=== PATIENT | male | born 1955 | race Caucasian/White ===

== ENCOUNTER 2024-09-28 09:47 | Inpatient (IN) | payer OTHER ==
[~2024-09-28] VITALS: Ht 188 cm; Wt 177.0 kg
[2024-09-28] VITALS (24 sets, daily range): BP systolic 100–138; BP diastolic 51–96; PULSE 64–140; RESP 9–19; TEMP 98–98.7; O2SAT 88–100
--- NOTE | 2024-09-28 09:59 | DVHINCON2 ---
Date Seen: Sep 28, 2024 Referring Physician MD Sharon Reason for Consultation STEMI History of Present Illness This is a 69-year-old man who presented to the emergency room via EMS with a chief complaint of chest pain. Describes the chest pain as substernal, radiating to his left arm, non provoked, and rated as 8/10. He self administered NTG SL 0.4 mg x 2 with mild relief of symptoms prior to EMS arrival. He was found pale, cool, and diaphoretic undergoing a BGL check in the 180s ng/dL. ASA 325 mg was administered en route to the hospital. Upon arrival to the emergency room he underwent a 12 lead electrocardiogram revealing an inferior wall ST-elevation myocardial infarction with reciprocal changes to anteroseptal and lateral leads for which a Code STEMI was activated. During assessment, the patient transitioned from a sinus rhythm to atrial fibrillation with an associated SBP in the 90s mmHg. Significant medical history includes coronary artery disease status post PTCA including one CHELSEA to the RCA with ASA therapy at [facility] in 2020, unspecified skin CA with current left facial lesion and previous lesion removal from right shoulder area and left AC two weeks ago, hypertension, dyslipidemia, insulin-dependent diabetes mellitus, COPD with O2 dependence, remote history of tobacco use including 44 pack-years, and morbid obesity. Past Medical History Past medical history reviewed. No other significant than mentioned above. Past Surgical History PTCA to the RCA x 1 CHELSEA, 2020 Right shoulder lesion removal Left AC lesion removal, two weeks ago Right ankle Back Neck Family History Family history reviewed. Social History Denies the use of illicit drugs, alcohol, or tobacco use. Allergies: Coded Allergies: NO KNOWN ALLERGIES (Unverified , 06/26/14) Home Meds Home medications reviewed. Current Medications Current Medications Medications (Trade) Dose Ordered Sig/Arnol Route PRN Reason Start Time Stop Time Status Last Admin Sodium Chloride (Saline Lock Ns) 10 ml Q8HR IV 09/28/24 14:00 UNV Aspirin 81 mg DAILY PO 09/29/24 10:00 UNV Review of Systems Constitutional: No symptom reported Ears, Nose, & Throat: No symptom reported Eyes: No symptom reported Neurological: No symptoms reported Pulmonary/Respiratory: No symptom reported Cardiovascular: Chest pain Gastrointestinal: No symptom reported Genitourinary: No symptom reported Musculoskeletal: No symptom reported Skin: No symptom reported Psychiatric: No symptom reported Endocrine: No symptom reported Hemotologic/Lymphatic: No symptom reported Physical Exam General Appearance: Cool, pale, diaphoretic. Morbidly obese. Severe acute distress Head Exam: Normal inspection Neck Exam: Normal inspection. Non-tender. Normal alignment Pulmonary/Respiratory: Chest non-tender. Diminished bilateral breath sounds Cardiovascular/Chest: Regular rate and rhythm. S1, S2. Inferior wall STEMI. No murmurs. No JVD. Peripheral Pulses: 2+ Radial (R). 2+ Radial (L). 2+ Pedal (R). 2+ Pedal (L) Abdominal Exam: Normal bowel sounds. Soft. Ankle Exam: Negative ankle edema Lower extremities: Negative lower extremity edema Neuro/Mental Status: A&O x4. Coherent Thoughts/Psych: Normal thought pattern. Appropriate mood and affect. Good judgement and insight Appearance: Severe acute distress Skin Exam: Hyperpigmentation to bilateral lower extremities Assessment Acute inferior wall ST-elevation myocardial infarction Transient atrial fibrillation likely secondary to above Coronary artery disease status post PTCA of the RCA x1 CHELSEA (2020) Hypertension Dyslipidemia Insulin-dependent diabetes mellitus COPD with O2 dependence Skin CA with left facial lesion Recent history of lower GI bleed Morbid obesity Plan/Recommendation (Dr. Gomez) Scheduled for emergent cardiac catheterization and coronary angiogram. All risks and benefits of the procedure were discussed with the patient who agrees to proceed with intervention. All questions answered. Postprocedure obtain a transthoracic echocardiogram to evaluate cardiac function. Initiate amiodarone drip per pharmacy protocol given new onset atrial fibrillation. Avoid nitrates and diuretics at this time. Initiate IV fluids. ASA and Heparin IV administered pre-procedure. Further orders per clinical course. Thank you for allowing us to participate in this patient's care. Please call if you have any questions or concerns. Critical care time: 40 min. This medical document was created using an electronic medical record system with voice recognition software and computerized dictation system. Although this document has been carefully reviewed, there might still be some phonetic and typographical errors. Occasional wrong-word or ``sound-alike substitutions may have occurred due to the inherent limitations of voice recognition software. These areas are purely typographical due to imperfections of the software programs and do not reflect any compromise in the patient's medical care. Please read the chart carefully and recognize, using context, where these substitutions have occurred. Plan discussed with: Patient, Other NYHA Physical activity limitations: NA Date of Service: Sep 28, 2024 Billing Provider: JESSIE MCCONNELL Cardiology Common Codes: 42413-DIHFLNZJ CARE 30-74 MIN JESSIE MCCONNELL Sep 28, 2024 09:59
[2024-09-28] MEDS: ASPirin 325 MG TAB PO ONE (10:00)
[2024-09-28] MEDS ORDERED: HEPARIN SODIUM (PORCINE) 5000 UNITS/ML 1ML VIAL IV ONE (10:00)
[2024-09-28] MEDS: ANGIOMAX 250 MG VIAL IV ONE ×2 (10:02→10:44)
[2024-09-28] MEDS: fentaNYL CITRATE 100 MCG/2 ML VL ONE ×3 (10:02→11:04)
[2024-09-28] MEDS: LIDOCAINE 2%HCL (LOCAL ANESTH.) INJ 20ML MDV ONE (10:03)
[2024-09-28] MEDS: MIDAZOLAM HCL 2MG/2ML 2ml VIAL (1mg/ml) ONE (10:03)
[2024-09-28] MEDS: SODIUM CHL 0.9% 50 ML ONE ×2 (10:03→10:44)
[2024-09-28] MEDS: HEPARIN SODIUM (PORCINE) 5000 UNITS/ML 1ML VIAL IV ONE (10:09)
[2024-09-28] MEDS: SODIUM CHLORIDE 0.9% 1,000 ML IV ONE (10:15)
[2024-09-28] MEDS: AMIODARONE BOLUS KIT 100 ML IV ONE ×2 (10:15→11:00)
--- NOTE | 2024-09-28 10:24 | DVH ---
CHEST RADIOGRAPH Indication: STEMI Technique: Single frontal view of the chest was obtained COMPARISON: None FINDINGS: Lines and Tubes: None Lungs: Mild congestion Pleura: No effusion. No pneumothorax. Cardiomediastinal contours: Unremarkable Bones: Unremarkable IMPRESSION: Mild congestion
--- NOTE | 2024-09-28 10:27 | ED.PDOC ---
HPI Comments 69 y/o M, BIBA with PMHX of HTN, COPD, and skin cancer presents to the ED for CC of chest pain. Per EMS, patient is coming from home where he complained of substernal chest pain that radiates to his left arm x1hour. EMS relays, that patient describes pain to be constant and sharp in nature. Patient comments on, taking Nitro x2 at home; 324mg of Aspirin were given in route to ED. Upon arrival, patient is visibly perspiring and diaphoretic. Patient uses home O2. No other associated symptoms, modifiers, recent injuries or sick contacts at this time. Chief Complaint: Chest Pain Time Seen by MD: 10:50 Primary Care Provider: CLEMENCIA Reviewed Notes: Nurses Notes, Electrical Sign Servicer Notes, Medications, Allergies Allergies: Coded Allergies: NO KNOWN ALLERGIES (Unverified , 06/26/14) Mode of Arrival: EMS Severity: Severe Timing: Hours Duration: Hours Prehospital treatment: 12 Lead EKG Location: Substernal Radiation: Arm (L) Quality: Sharp Onset: At Rest Cardiac Risk Factors: HTN PE Risk Factors: None History of: None Modifying Factors: Nothing Associated Signs and Symptoms: None Past Medical History PAST MEDICAL HISTORY: Cancer, COPD, HTN Surgical History: Denies all surgeries Family History Family History: Unknown Social History Smoker: Cigarettes Alcohol: Denies ETOH Use Drugs: Denies Drug Use Lives In: Home Constitutional: denies: chills, diaphoresis, fatigue, fever, malaise, sweats, weakness, others EENTM: denies: blurred vision, double vision, ear bleeding, ear discharge, ear drainage, ear pain, ear ringing, eye pain, eye redness, hearing loss, mouth pain, mouth swelling, nasal discharge, nose bleeding, nose congestion, nose pain, photophobia, tearing, throat pain, throat swelling, voice changes, others Respiratory: denies: cough, hemoptysis, orthopnea, SOB at rest, shortness of breath, SOB with excertion, stridor, wheezing, others Cardiovascular: reports: chest pain; denies: dizzy spells, diaphoresis, Dyspnea on exertion, edema, irregular heart beat, left arm pain, lightheadedness, palpitations, PND, syncope, others Gastrointestinal: denies: abdomen distended, abdominal pain, blood streaked bowels, constipated, diarrhea, dysphagia, difficulty swallowing, hematemesis, melena, nausea, poor appetite, poor fluid intake, rectal bleeding, rectal pain, vomiting, others Genitourinary: denies: burning, dysuria, flank pain, frequency, hematuria, incontinence, penile discharge, penile sore, pain, testicle pain, testicle swelling, urgency, others Neurological: denies: dizziness, fainting, headache, left sided numbness, left sided weakness, numbness, paresthesia, pre-existing deficit, right sided numbness, right sided weakness, seizure, speech problems, tingling, tremors, weakness, others Musculoskeletal: denies: back pain, gout, joint pain, joint swelling, muscle pain, muscle stiffness, neck pain, others Integumetry: denies: bruises, change in color, change in hair/nails, dryness, laceration, lesions, lumps, rash, wounds, others Allergic/Immunocompromised: denies: Difficulty Healing, Frequent Infections, Hives, Itching, others Hematologic/Lymphatic: denies: anemia, blood clots, easy bleeding, easy bruising, swollen glands, others Endocrine: denies: excessive hunger, excessive sweating, excessive thirst, excessive urination, flushing, intolerance to cold, intolerance to heat, unexplained weight gain, unexplained weight loss, others Psychiatric: denies: anxiety, bipolar disorder, depression, hopeless, panic disorder, schizophrenia, sleepless, suicidal, others All Other Systems: Reviewed and Negative Physical Exam General Appearance: Moderate Distress HEENT: Normal ENT Inspection, Pharynx Normal, TMs Normal Neck: Full Range of Motion, Non-Tender, Normal, Normal Inspection Respiratory: Chest Non-Tender, Lungs Clear, No Accessory Muscle Use, No Respiratory Distress, Normal Breath Sounds Cardiovascular: No Edema, No JVD, No Murmur, No Gallop, Normal Peripheral Pulses, Regular Rate/Rhythm Breast Exam: Deferred Gastrointestinal: No Organomegaly, Non Tender, No Pulsatile Mass, Normal Bowel Sounds, Soft Genitalia: Deferred Pelvic: Deferred Rectal: Deferred Extremities: No pedal edema Musculoskeletal : Apperance: Normal Neurologic: Alert, No Motor Deficits, No Sensory Deficits Cerebellar Function: NOT DONE Reflexes: NOT DONE Skin: Normal Color Peripheral Pulses: 3+ Radial (R), 3+ Radial (L) Lymphatic: No Adenopathy Was a procedure done? Was a procedure done?: No CP Differential Dx Differential Diagnosis: A-fib, A-Flutter, Angina, Anxiety / Panic Attack, Atrial Dysrhythmia, Electrolyte Disorder Differential Diagnosis: Other (POSSIBLE STEMI) X-Ray, Labs, Meds, VS Vital Signs Date Time Temp Pulse Resp B/P (MAP) Pulse Ox O2 Delivery O2 Flow Rate FiO2 09/28/24 11:55 124 18 115/74 (88) 90 09/28/24 11:40 98.0 130 16 132/70 (90) 90 98.0 09/28/24 09:55 124 21 103/56 (72) 99 09/28/24 09:48 62 09/28/24 09:48 98.9 90 16 116/71 (86) 100 98.9 Lab Test 09/28/24 12:15 09/28/24 10:00 Range/Units POC Glucose 201 H 70-106 mg/dl White Blood Count 12.4 H 4.4-10.8 10^3/uL Red Blood Count 3.87 L 4.5-5.90 10^6/uL Hemoglobin 12.4 L 13.5-17.5 g/dL Hematocrit 38.9 L 41.0-53.0 % Mean Corpuscular Volume 100.5 H 80.0-100.0 fL Mean Corpuscular Hemoglobin 32.0 28.0-32.0 pg Mean Corpuscular Hemoglobin Concent 31.9 L 32.0-36.0 g/dL Red Cell Distribution Width 13.0 11.8-14.3 % Platelet Count 271 140-450 10^3/uL Mean Platelet Volume 9.1 6.9-10.8 fL Neutrophils (%) (Auto) 57.9 37.0-80.0 % Lymphocytes (%) (Auto) 30.9 10.0-50.0 % Monocytes (%) (Auto) 9.8 0.0-12.0 % Eosinophils (%) (Auto) 1.1 0.0-7.0 % Basophils (%) (Auto) 0.3 0.0-2.0 % Neutrophils # (Auto) 7.2 1.6-8.6 10 ^3/uL Lymphocytes # (Auto) 3.8 0.4-5.4 10 ^3/uL Monocytes # (Auto) 1.2 0-1.3 10 ^3/uL Eosinophils # (Auto) 0.1 0-0.8 10 ^3/uL Basophils # (Auto) 0 0-0.2 10 ^3/uL Nucleated Red Blood Cells 0.1 % Prothrombin Time 11.0 9.3-11.8 sec Prothrombin Time INR 1.04 0.9-1.15 Sodium Level 140 136-145 mmol/L Potassium Level 3.9 3.5-5.1 mmol/L Chloride Level 101 98-107 mmol/L Carbon Dioxide Level 28 20-31 mmol/L Anion Gap 11 5-15 Blood Urea Nitrogen 32 H 9-23 mg/dL Creatinine 1.61 H 0.700-1.30 mg/dL Glomerular Filtration Rate Calc 46 >90 mL/min BUN/Creatinine Ratio 19.9 10.0-20.0 Serum Glucose 232 H 74-106 mg/dL Hemoglobin A1c 6.7 H <5.7 % A1C Calcium Level 9.3 8.7-10.4 mg/dL Magnesium Level 2.1 1.6-2.6 mg/dL Total Bilirubin 0.6 0.2-1.0 mg/dL Aspartate Amino Transferase (AST) 13 13-40 U/L Alanine Aminotransferase (ALT) 28 7-40 U/L Alkaline Phosphatase 61 46-116 U/L Troponin I High Sensitivity 6 </=54 ng/L B-Type Natriuretic Peptide 36.94 0-100 pg/mL Total Protein 7.2 5.7-8.2 g/dL Albumin 4.1 3.2-4.8 g/dL Triglycerides Level 131 < 150 mg/dL Cholesterol Level 120 < 200 mg/dL LDL Cholesterol 70 < 100 mg/dL HDL Cholesterol 32 L 40-59 mg/dL Thyroid Stimulating Hormone (TSH) 1.22 0.55-4.78 uIU/mL Current Medications Medications (Trade) Dose Ordered Sig/Arnol Route Start Time Stop Time Status Last Admin Heparin Sodium (Porcine) 4,000 units ONCE ONCE IV 09/28/24 10:00 09/28/24 10:06 DC 09/28/24 10:[address] [address] Ph: [phone] DIAGNOSTIC IMAGING Diagnostic Imaging Report : [id number] Signed PATIENT: CAITLIN CANELA ACCT: [id number] UNIT: [id number] : 1955 LOC: ER ROOM / BED: / AGE / SEX: 69 / M ADM STATUS: REG ER SERVICE [id number] ORDERING PHYSICIAN: ATILIO WOLFF MD PROCEDURE(s): CXRP - CHEST PORTABLE REASON: STEMI ORDER NUMBER(s): [id number], ACCESSION NUMBER(s): [id number] CHEST RADIOGRAPH Indication: STEMI Technique: Single frontal view of the chest was obtained COMPARISON: None FINDINGS: Lines and Tubes: None Lungs: Mild congestion Pleura: No effusion. No pneumothorax. Cardiomediastinal contours: Unremarkable Bones: Unremarkable IMPRESSION: Mild congestion ATED BY: AKBAR WILCOX MD DICTATED DATE/TIME: 09/28/24 1021 SIGNED BY: AKBAR WILCOX MD SIGNED DATE/TIME: 09/28/24 1021 CC: Patient alert. Complaining of chest pain. EKG does show STEMI. Vitals stable. open hearth furnace laborer activated. Was given heparin. He is perspiring. He does have risk factors. WBC elevated. Spoke with scrap drop operator. Explained to the patient. Continue cardiac monitoring. Time of 1ST Reevaluation: 11:20 Reevaluation 1ST: Unchanged Patient Education/Counseling: Diagnosis, Treatment Family Education/Counseling: No Family Present Departure 1 Departure Time of Disposition: 11:24 Impression: Primary Impression: STEMI (ST elevation myocardial infarction) Qualified Codes: I21.3 - ST elevation (STEMI) myocardial infarction of unspecified site Additional Impression: Uncontrolled diabetes mellitus Qualified Codes: E13.65 - Other specified diabetes mellitus with h yperglycemia Disposition: ADMITTED INPATIENT Admit to: Med Surg Condition: Guarded Critical Care Note Critical Care Time?: Yes (45 min-critical care time only) Stability Stability form required: No Heart Score Heart Score: Heart Score Response (Comments) Value History Highly Suspicious [address]-Deviation 2 Age >65 2 Risk Factors >3 or Hx ASHD 2 Troponin N/A 0 Total 8 I personally scribed for ATILIO WOLFF MD ([email or web address]) on 09/28/24 at 10:27. Electronically submitted by Alba Reddy ([email or web address]). I personally scribed for ATILIO WOLFF MD ([email or web address]) on 09/28/24 at 14:05. Electronically submitted by Alba Reddy ([email or web address]). ATILIO WOLFF MD Sep 28, 2024 10:27
[2024-09-28] MEDS: ATROPINE SULF 1 MG/10ml SYR ONE (10:29)
[2024-09-28] MEDS ORDERED: AMIODARONE 360mg/200mL PREMIX 200 ML IV ONE ×2 (10:30→11:00)
[2024-09-28 10:32] LABS: Basophils # (auto) 0 10 ^3/uL (0-0.2); Basophils % (auto) 0.3 % (0.0-2.0); Eosinophils # (auto) 0.1 10 ^3/uL (0-0.8); Eosinophils % (auto) 1.1 % (0.0-7.0); Hematocrit 38.9 % (41.0-53.0); Hemoglobin 12.4 g/dL (13.5-17.5); Lymphocytes # (auto) 3.8 10 ^3/uL (0.4-5.4); Lymphocytes % (auto) 30.9 % (10.0-50.0); Mean Corpuscular Hgb Conc. 31.9 g/dL (32.0-36.0); Mean Corpuscular Volume 100.5 fL (80.0-100.0); Monocytes # (auto) 1.2 10 ^3/uL (0-1.3); Monocytes % (auto) 9.8 % (0.0-12.0); Neutrophils # (auto) 7.2 10 ^3/uL (1.6-8.6); Neutrophils % (auto) 57.9 % (37.0-80.0); Nucleated Red Blood Cells % 0.1 %; Platelet Count (auto) 271 10^3/uL (140-450); Red Blood Cells 3.87 10^6/uL (4.5-5.90); White Blood Cell 12.4 10^3/uL (4.4-10.8)
[2024-09-28 10:39] LABS: INR 1.04 (0.9-1.15)
[2024-09-28] MEDS: AMIODARONE 360mg/200mL PREMIX 200 ML IV ONE ×2 (10:39→12:00)
[2024-09-28] MEDS: AMIODARONE HCL (50 MG/ ML) 3 ML VIAL IV ONE (10:39)
[2024-09-28 10:40] LABS: Alanine Aminotransferase 28 U/L (7-40); Albumin 4.1 g/dL (3.2-4.8); Alkaline Phosphatase 61 U/L (46-116); Anion Gap 11 (5-15); BUN/Creatinine Ratio 19.9 (10.0-20.0); Calcium 9.3 mg/dL (8.7-10.4); Carbon Dioxide 28 mmol/L (20-31); Chloride 101 mmol/L (98-107); Magnesium 2.1 mg/dL (1.6-2.6); Potassium 3.9 mmol/L (3.5-5.1); Sodium 140 mmol/L (136-145); Total Protein 7.2 g/dL (5.7-8.2)
[2024-09-28 10:41] LABS: Aspartate Aminotransferase 13 U/L (13-40); Bilirubin, Total 0.6 mg/dL (0.2-1.0); Blood Urea Nitrogen 32 mg/dL (9-23); Glucose 232 mg/dL (74-106)
[2024-09-28] MEDS ORDERED: AMIODARONE BOLUS KIT 100 ML IV ONE (10:45)
[2024-09-28] MEDS: niCARdipine 25 MG/10 ML VIAL IV ONE (10:49)
[2024-09-28 10:50] LABS: LDL Cholesterol 70 mg/dL (< 100); Triglycerides 131 mg/dL (< 150)
[2024-09-28 10:52] LABS: Cholesterol 120 mg/dL (< 200)
[2024-09-28 10:59] LABS: HDL Cholesterol 32 mg/dL (40-59)
[2024-09-28] MEDS: TICAGRELOR 90 MG TAB ONE (11:10)
[2024-09-28] MEDS: IODIXANOL 320MG/ML 100ML BTL IV ONE (11:15)
[2024-09-28] MEDS ORDERED: ONDANSETRON HCL 4 MG/2 ML VIAL IV PRN ×2 (12:15→14:30)
[2024-09-28] MEDS ORDERED: HYDROcodone-ACET 5/325MG TAB PO PRN (12:15)
[2024-09-28] MEDS ORDERED: DEXTROSE (50%) 50ML SYRG IV PRN ×3 (12:15→17:30)
[2024-09-28] MEDS ORDERED: MORPHINE SULFATE 4 MG/ML SYR/VIAL IV PRN (12:15)
[2024-09-28] MEDS ORDERED: ACETAMINOPHEN 500 MG TAB or CAP PO PRN (12:15)
--- NOTE | 2024-09-28 12:52 | DVHHP2 ---
History of Present Illness H&P HPI 69 yo M with IDDM, ex smoker, s/p CHELSEA x1 in RCA? 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 Patient had crushing substernal chest pain since 8.45 am this morning, underwent LHC with lcx occlusion, received CHELSEA x1 in LCx. Ex smoker, quit 6 years ago, 1 PPD for 45 years. Using insulin 70/30 80 units twice daily, glucose controlled per patient, compliant with meds. Had DONNY but unable to use CPAP. after PCI aptient was back in cathlab, tachy and was started on amiodarone drip. Physical exam Alert oriented x3 morbidly obese S1 s2 tachycardia b/l crackles abdomen distended b/l LE edema, skin changes Labs H/H 12/38 MCV 100 WBC 12 Plt 271 Cr 1.61 Gluc 232 Trop 6 BNP 36 LDL 70 HDL 32 Trig 131 TSH 1.2 A1c 6.7 EKG Sinus rhythm, inferior STEMI, RBBB Imaging CXR mild congestion Assessment and plan STEMI acute on chronic hypoxic respiratory failure Hypertensive heart disease likely HFpEF COPD group E on home O2 DONNY/OHS not on cpap IDDM diabetic neuropathy Macrocytic anemia Leukocytosis skin cancer s/p excisional bx Cardio consult appreciated c/w o2 maintain spo2 >94% s/p PCI x1 mid lcx start DAPT asa brilinta echo BB KAVON/ARB tomorrow ISS c/w amio drip capsaicin for neuropathy Diet cardiac DVT ppx lovenox Code status full code Goals of care curative Medical decision maker krysta dorantes 68 minutes critical care spent 30 minutes goals of care discussion Date of Service: Sep 28, 2024 Billing Provider: TRUMAN KIRKLAND MD Common Visit Codes: 71410-MJFRNKL INP/OBS CARE (HIGH), 62726-CFIVDTGC CARE 30- 74 MIN Secondary Visit Codes: 69528-IMAWJOEQ CARE PLAN 30 MINUTES TRUMAN KIRKLAND MD Sep 28, 2024 12:52
--- NOTE | 2024-09-28 12:57 | DVHOP ---
DATE OF SURGERY: 09/28/2024 TECHNIQUE PERFORMED: * Code STEMI. * Insertion of a 6-Austrian arterial line from the right femoral artery under fluoroscopic guidance. * Management of conscious sedation. * Left heart cath. * Left ventriculogram. * [place] selective left and right coronary artery angiography. COMPLICATIONS: None. ASSISTANTS: By our staff over here is Shailesh Quiles Janice, Samantha, Evan. INDICATIONS: The patient has an acute inferior lateral wall ST segment elevation, 10/10 chest pain. Code STEMI was called. DESCRIPTION OF PROCEDURE: Risks and benefits discussed with the patient, understood very well, brought urgently to casting house laborer. The patient's right groin was shaved, was cleaned with soap and Betadine. It was unable to feel any pulses in the groin because of his morbid obesity. Subsequently, we have able to obtain a venous puncture. The wire was passed and subsequently lateral to the venous puncture, the arterial puncture was made. Only with the help of glidewire, was able to get through and subsequently 6-Austrian arterial line was placed. We put a JL4 catheter and left coronary angio done. With the help of a JR4 catheter, the right coronary angio done. At the end of the procedure, we also put a pigtail catheter and complete left heart cath had also been done. The left ventriculogram was done in a right oblique view with a total of 20 mL dye. Post-LV gram, left ventriculogram again performed with the help of pull-through technique. Aortic pressure also performed. J-wire was passed. Pigtail catheter also had been discontinued. Procedure completed. IMPRESSION: * Normal left main. * Left anterior descending artery proximally had an eccentric narrowing 70%. * Circumflex artery is a very large dominant artery. Left circumflex artery in the proximal one-third region has underlying thrombus formation and echogenic structure noted 99.9% narrowing followed by obtuse marginal artery followed by mid and distal region of the circumflex artery without any disease. * The right coronary artery appeared to be nondominant, but appeared to be very large caliber artery. Proximally narrowed in the range of almost 75%. Ejection fraction is normal in the range of 65% plus. PLAN OF ACTION: Advised to undergo the intervention on the circumflex artery. Jun Gomez MD MP/GIRMA/MARIANELA TID: [id number] RECEIPT: [id number] [facility]
--- NOTE | 2024-09-28 13:09 | DVHINCON2 ---
Date of service: Sep 28, [address] Gomez Reason for Consultation hyperglycemia History of Present Illness 69yo M w/ hx of HTN, COPD, T2DM, chronic hypoxic respiratory failure who presented to hospital on 09/28 due to acute chest pain. Patient reported substenral chest pain x 1 hour prior to admission. Provided nitro and 324mg ASA en route. Upon arrival patient hemodynamically stable. EKG showed STEMI. Patient underwent emergent C s/p circumflex PTCA stent. Admission lab notable for A1c 6.7%. At home patient maintained on NPH/regular 70/30 78U bid. He takes ozempic 2mg weekly and other PO pharmacotherapy for which he is not certain. States utilizes CGM at home BG usually 100-150mg/dL. Past Medical History Problems Medical Problems: (1) STEMI (ST elevation myocardial infarction) Status: Acute (2) Uncontrolled diabetes mellitus Status: Acute Past Surgical History Past Surgical History Medical Problems: (1) STEMI (ST elevation myocardial infarction) Status: Acute (2) Uncontrolled diabetes mellitus Status: Acute Allergies: Coded Allergies: NO KNOWN ALLERGIES (Unverified , 06/26/14) Current Medications Current Medications Medications (Trade) Dose Ordered Sig/Arnol Route PRN Reason Start Time Stop Time Status Last Admin Sodium Chloride (Saline Lock Ns) 10 ml Q8HR IV 09/28/24 14:00 Aspirin 81 mg DAILY PO 09/29/24 10:00 Acetaminophen/ Hydrocodone Bitart ([place] 5/325MG Tab) 1 tab Q4HP PRN PO MODERATE PAIN (4-6 PAIN SCALE) 09/28/24 12:15 UNV Ondansetron HCl (Zofran) 4 mg Q4HP PRN IV NAUSEA / VOMITING 09/28/24 12:15 UNV Acetaminophen (Tylenol Tablet Or Capsule) 500 mg Q6HP PRN PO MILD PAIN (1-3 PAIN SCALE) 09/28/24 12:15 UNV Morphine Sulfate 1 mg Q4HP PRN IV SEVERE PAIN (7-10 PAIN SCALE) 09/28/24 12:15 UNV Ticagrelor (Brilinta) 90 mg BID PO 09/28/24 22:00 UNV Aspirin 81 mg DAILY PO 09/29/24 10:00 UNV Atorvastatin Calcium (Lipitor) 80 mg DAILY PO 09/29/24 10:00 UNV Metoprolol Tartrate (Lopressor Tablet) 25 mg BID PO 09/28/24 22:00 UNV Diagnostic Test (Pha) (Accu-Chek Comfort Curve T) 1 strip ACHS 09/28/24 17:00 UNV Insulin Human Regular (InsuLIN R) HS SC 09/28/24 22:00 UNV Insulin Human Regular (InsuLIN R) AC SC 09/28/24 17:00 UNV Dextrose 50 ml UD PRN IV Blood Sugar LESS THAN 60 09/28/24 12:15 UNV Enoxaparin Sodium (Lovenox) 40 mg DAILY SC 09/29/24 10:00 UNV Review of Systems Negative except that which is stated in HPI Vital Signs Vital Signs Date Time Temp Pulse Resp B/P (MAP) Pulse Ox O2 Delivery O2 Flow Rate FiO2 09/28/24 11:55 124 18 115/74 (88) 90 09/28/24 11:40 98.0 98.0 Physical Exam Gen - no acute distress HEENT - no thyromegaly CV - RRR, no m/r/g Resp - CTAB, no wheezes/crackles/rales Abd - soft, nontender Ext - no edema Labs/Diagnostic Data Labs Test 09/28/24 12:15 09/28/24 10:00 Range/Units POC Glucose 201 H 70-106 mg/dl White Blood Count 12.4 H 4.4-10.8 10^3/uL Red Blood Count 3.87 L 4.5-5.90 10^6/uL Hemoglobin 12.4 L 13.5-17.5 g/dL Hematocrit 38.9 L 41.0-53.0 % Mean Corpuscular Volume 100.5 H 80.0-100.0 fL Mean Corpuscular Hemoglobin 32.0 28.0-32.0 pg Mean Corpuscular Hemoglobin Concent 31.9 L 32.0-36.0 g/dL Red Cell Distribution Width 13.0 11.8-14.3 % Platelet Count 271 140-450 10^3/uL Mean Platelet Volume 9.1 6.9-10.8 fL Neutrophils (%) (Auto) 57.9 37.0-80.0 % Lymphocytes (%) (Auto) 30.9 10.0-50.0 % Monocytes (%) (Auto) 9.8 0.0-12.0 % Eosinophils (%) (Auto) 1.1 0.0-7.0 % Basophils (%) (Auto) 0.3 0.0-2.0 % Neutrophils # (Auto) 7.2 1.6-8.6 10 ^3/uL Lymphocytes # (Auto) 3.8 0.4-5.4 10 ^3/uL Monocytes # (Auto) 1.2 0-1.3 10 ^3/uL Eosinophils # (Auto) 0.1 0-0.8 10 ^3/uL Basophils # (Auto) 0 0-0.2 10 ^3/uL Nucleated Red Blood Cells 0.1 % Prothrombin Time 11.0 9.3-11.8 sec Prothrombin Time INR 1.04 0.9-1.15 Sodium Level 140 136-145 mmol/L Potassium Level 3.9 3.5-5.1 mmol/L Chloride Level 101 98-107 mmol/L Carbon Dioxide Level 28 20-31 mmol/L Anion Gap 11 5-15 Blood Urea Nitrogen 32 H 9-23 mg/dL Creatinine 1.61 H 0.700-1.30 mg/dL Glomerular Filtration Rate Calc 46 >90 mL/min BUN/Creatinine Ratio 19.9 10.0-20.0 Serum Glucose 232 H 74-106 mg/dL Hemoglobin A1c 6.7 H <5.7 % A1C Calcium Level 9.3 8.7-10.4 mg/dL Magnesium Level 2.1 1.6-2.6 mg/dL Total Bilirubin 0.6 0.2-1.0 mg/dL Aspartate Amino Transferase (AST) 13 13-40 U/L Alanine Aminotransferase (ALT) 28 7-40 U/L Alkaline Phosphatase 61 46-116 U/L Troponin I High Sensitivity 6 </=54 ng/L B-Type Natriuretic Peptide 36.94 0-100 pg/mL Total Protein 7.2 5.7-8.2 g/dL Albumin 4.1 3.2-4.8 g/dL Triglycerides Level 131 < 150 mg/dL Cholesterol Level 120 < 200 mg/dL LDL Cholesterol 70 < 100 mg/dL HDL Cholesterol 32 L 40-59 mg/dL Thyroid Stimulating Hormone (TSH) 1.22 0.55-4.78 uIU/mL Assessment # CAD c/b STEMI s/p PCI to LCA # Type 2 DM with hyperglycemia # HTN - Start glargine 30 units nightly - Start lispro 8 units tidac - Start moderate intensity correctional lispro tidac, qhs - Start POC BG monitoring tidac, qhs - Hypoglycemia protocol - Recommend f/u as outpatient with endocrinology. Strong indication for GLP-1, SGLT2i therapy. Plan discussed with: Patient ANGELICA CHAMBERS MD Sep 28, 2024 13:09
[2024-09-28] MEDS: SODIUM CHLOR 0.9% PF (SALINE LOCK) 10ML VIAL/SYR IV SCH (14:00)
[2024-09-28] MEDS ORDERED: ALBUTEROL SULF 2.5 MG/0.5ML(0.5%) NEB SOLN NEB PRN (14:45)
[2024-09-28] MEDS ORDERED: IPRATROPIUM BROM 0.5 MG/2.5ML INH SOL NEB PRN (14:45)
[2024-09-28] MEDS ORDERED: CAPSAICIN 0.025% CREAM 60GM TOP PRN (14:45)
[2024-09-28] MEDS ORDERED: AMIODARONE 360mg/200mL PREMIX 200 ML IV SCH ×3 (16:30→17:00)
[2024-09-28] MEDS ORDERED: ACCU-CHEK COMFORT CURVE STRIP VI SCH ×2 (17:00)
[2024-09-28] MEDS ORDERED: InsuLIN REG 1unit/0.01ml Soln (100units/ml) SC SCH ×4 (17:00→22:00)
[2024-09-28] MEDS: AMIODARONE HCL 200 MG TAB PO ONE (18:22)
[2024-09-28] MEDS: INSULIN LANTUS (GLARGINE) 1 /0.01ml (100units/ml) SC SCH (18:46)
--- NOTE | 2024-09-28 18:50 | ECG ---
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
[2024-09-28] MEDS ORDERED: ACETAMINOPHEN 325 MG TAB PO SCH (22:00)
[2024-09-28] MEDS ORDERED: INSULIN LANTUS (GLARGINE) 1 /0.01ml (100units/ml) SC SCH (22:00)
[2024-09-28] MEDS: ATORVASTATIN 20 MG TAB PO SCH (22:09)
[2024-09-28] MEDS: METOPROLOL TARTRATE 25 MG TAB PO SCH (22:10)
[2024-09-28] MEDS: LORazepam 0.5 MG TAB PO PRN (22:10)
[2024-09-28] MEDS: TICAGRELOR 90 MG TAB PO SCH (22:10)
[2024-09-28] MEDS: ACCU-CHEK COMFORT CURVE STRIP VI SCH (22:11)
[2024-09-28] MEDS: INSULIN LISPRO (HUMAN) 100 UNITS/ML ML SC SCH (22:16)
[2024-09-28] MEDS ORDERED: METO-159 PO (23:04)
[2024-09-28] MEDS ORDERED: LOSA-534 PO (23:06)
[2024-09-28] MEDS ORDERED: EMPA1TAB3 PO (23:07)
[2024-09-28] MEDS ORDERED: ATOR-507 PO (23:08)
[2024-09-28] MEDS ORDERED: POTA-36 PO (23:08)
[2024-09-28] MEDS ORDERED: FURO1TAB31 PO (23:09)
[2024-09-28] MEDS ORDERED: ASPI-543 PO (23:10)
[2024-09-28] MEDS ORDERED: SPIR25TA8 PO (23:10)
[2024-09-28] MEDS ORDERED: GARL1000 PO (23:12)
[2024-09-28] MEDS ORDERED: FOLI400T5 PO (23:12)
--- NOTE | 2024-09-28 23:31 | DVHINCON2 ---
Date Seen: Sep 28, 2024 Referring Physician MD Sharon Reason for Consultation STEMI History of Present Illness This is a 69-year-old male with a past medical history of coronary artery disease status post PTCA including one CHELSEA to the RCA with ASA therapy at [facility] in 2020, hypertension, dyslipidemia, insulin-dependent diabetes mellitus, COPD with O2 dependence, and morbid obesity who presented to the emergency room via EMS with complaint of chest pain. Patient describes the chest pain as substernal, radiating to his left arm, non provoked, and rated as 8/10. Patient self administered Nitroglycerin SL 0.4 mg x 2 with mild relief of symptoms prior to EMS arrival. Patient was found pale, cool, and diaphoretic undergoing a blood sugar check in the 180s ng/dL. Aspirin 325 mg was administered en route to the hospital. Upon arrival to the emergency room patient underwent a 12 lead electrocardiogram revealing an inferior wall ST- elevation myocardial infarction with reciprocal changes to anteroseptal and lateral leads for which a Code STEMI was activated. During assessment, the patient transitioned from a sinus rhythm to atrial fibrillation with an associated SBP in the 90s mmHg. Chest x-ray shows mild congestion. Patient was admitted to the hospital ICU. I am asked to consult on this patient. Past Medical History Past medical history reviewed. No other significant than mentioned above. Past Surgical History PTCA to the RCA x 1 CHELSEA, 2020 Right shoulder lesion removal Left AC lesion removal, two weeks ago Right ankle Back Neck Allergies: Coded Allergies: NO KNOWN ALLERGIES (Unverified , 06/26/14) Home Meds Reported Medications Folic Acid (Folic Acid) 400 Mcg Tab, 400 MCG PO DAILY, TAB 09/28/24 Garlic (Garlic Oil 1000) 2 Mg Cap, 2 MG PO, CAP 09/28/24 Aspirin (Aspir-Low) 81 Mg Tab, 81 MG PO DAILY for 30 Days, MG 09/28/24 Spironolactone (Spironolactone) 25 Mg Tab, 1 TAB PO DAILY, #90 TAB 1 Refill 09/28/24 Furosemide (Lasix) 40 Mg Tab, 40 MG PO BID, TAB 09/28/24 Atorvastatin Calcium (Lipitor) 40 Mg Tab, 1 TAB PO DAILY, #30 TAB 5 Refills 09/28/24 Potassium Chloride (POTASSIUM CHLORIDE CR) 10 Meq Tb, 1 TAB PO DAILY, #30 TAB 5 Refills 3/20/25 Empagliflozin (Jardiance) 25 Mg Tab, 25 MG PO DAILY, TAB 09/28/24 Losartan Potassium (Losartan Potassium) 50 Mg Tab, 50 MG PO DAILY@BREAKFAST for 30 Days, MG 09/28/24 Metoprolol Tartrate (Metoprolol Tartrate) 100 Mg Tab, 100 MG PO BID for 30 Days, MG 09/28/24 Current Medications Current Medications Medications (Trade) Dose Ordered Sig/Arnol Route PRN Reason Start Time Stop Time Status Last Admin Sodium Chloride (Saline Lock Ns) 10 ml Q8HR IV 09/28/24 14:00 Aspirin 81 mg DAILY PO 09/29/24 10:00 Acetaminophen/ Hydrocodone Bitart ([place] 5/325MG Tab) 1 tab Q4HP PRN PO MODERATE PAIN (4-6 PAIN SCALE) 09/28/24 12:15 Ondansetron HCl (Zofran) 4 mg Q4HP PRN IV NAUSEA / VOMITING 09/28/24 12:15 UNV Acetaminophen (Tylenol Tablet Or Capsule) 500 mg Q6HP PRN PO MILD PAIN (1-3 PAIN SCALE) 09/28/24 12:15 Morphine Sulfate 1 mg Q4HP PRN IV SEVERE PAIN (7-10 PAIN SCALE) 09/28/24 12:15 UNV Ticagrelor (Brilinta) 90 mg BID PO 09/28/24 22:00 UNV Aspirin 81 mg DAILY PO 09/29/24 10:00 Atorvastatin Calcium (Lipitor) 80 mg HS PO 09/28/24 22:00 Metoprolol Tartrate (Lopressor Tablet) 25 mg BID PO 09/28/24 22:00 UNV Diagnostic Test (Pha) (Accu-Chek Comfort Curve T) 1 strip ACHS 09/28/24 17:00 Insulin Human Regular (InsuLIN R) HS SC 09/28/24 22:00 UNV Insulin Human Regular (InsuLIN R) AC SC 09/28/24 17:00 UNV Dextrose 50 ml UD PRN IV Blood Sugar LESS THAN 60 09/28/24 12:15 Enoxaparin Sodium (Lovenox) 40 mg DAILY SC 09/29/24 10:00 UNV Review of Systems Constitutional: No symptom reported Ears, Nose, & Throat: No symptom reported Eyes: No symptom reported Neurological: No symptoms reported Pulmonary/Respiratory: No symptom reported Cardiovascular: Chest pain Gastrointestinal: No symptom reported Genitourinary: No symptom reported Musculoskeletal: No symptom reported Skin: No symptom reported Psychiatric: No symptom reported Endocrine: No symptom reported Hemotologic/Lymphatic: No symptom reported Vital Signs Vital Signs Date Time Temp Pulse Resp B/P (MAP) Pulse Ox O2 Delivery O2 Flow Rate FiO2 09/28/24 11:55 124 18 115/74 (88) 90 09/28/24 11:40 98.0 98.0 Physical Exam GENERAL: Awake, alert, oriented. Cool, pale and diaphoretic. Morbidly obese. LUNGS: Decreased breath sounds. CARDIOVASCULAR: Heart sounds are good. ABDOMEN: Soft. SKIN: Hyperpigmentation to BLEs. Labs/Diagnostic Data Labs Test 09/28/24 12:15 09/28/24 10:00 Range/Units POC Glucose 201 H 70-106 mg/dl White Blood Count 12.4 H 4.4-10.8 10^3/uL Red Blood Count 3.87 L 4.5-5.90 10^6/uL Hemoglobin 12.4 L 13.5-17.5 g/dL Hematocrit 38.9 L 41.0-53.0 % Mean Corpuscular Volume 100.5 H 80.0-100.0 fL Mean Corpuscular Hemoglobin 32.0 28.0-32.0 pg Mean Corpuscular Hemoglobin Concent 31.9 L 32.0-36.0 g/dL Red Cell Distribution Width 13.0 11.8-14.3 % Platelet Count 271 140-450 10^3/uL Mean Platelet Volume 9.1 6.9-10.8 fL Neutrophils (%) (Auto) 57.9 37.0-80.0 % Lymphocytes (%) (Auto) 30.9 10.0-50.0 % Monocytes (%) (Auto) 9.8 0.0-12.0 % Eosinophils (%) (Auto) 1.1 0.0-7.0 % Basophils (%) (Auto) 0.3 0.0-2.0 % Neutrophils # (Auto) 7.2 1.6-8.6 10 ^3/uL Lymphocytes # (Auto) 3.8 0.4-5.4 10 ^3/uL Monocytes # (Auto) 1.2 0-1.3 10 ^3/uL Eosinophils # (Auto) 0.1 0-0.8 10 ^3/uL Basophils # (Auto) 0 0-0.2 10 ^3/uL Nucleated Red Blood Cells 0.1 % Prothrombin Time 11.0 9.3-11.8 sec Prothrombin Time INR 1.04 0.9-1.15 Sodium Level 140 136-145 mmol/L Potassium Level 3.9 3.5-5.1 mmol/L Chloride Level 101 98-107 mmol/L Carbon Dioxide Level 28 20-31 mmol/L Anion Gap 11 5-15 Blood Urea Nitrogen 32 H 9-23 mg/dL Creatinine 1.61 H 0.700-1.30 mg/dL Glomerular Filtration Rate Calc 46 >90 mL/min BUN/Creatinine Ratio 19.9 10.0-20.0 Serum Glucose 232 H 74-106 mg/dL Hemoglobin A1c 6.7 H <5.7 % A1C Calcium Level 9.3 8.7-10.4 mg/dL Magnesium Level 2.1 1.6-2.6 mg/dL Total Bilirubin 0.6 0.2-1.0 mg/dL Aspartate Amino Transferase (AST) 13 13-40 U/L Alanine Aminotransferase (ALT) 28 7-40 U/L Alkaline Phosphatase 61 46-116 U/L Troponin I High Sensitivity 6 </=54 ng/L B-Type Natriuretic Peptide 36.94 0-100 pg/mL Total Protein 7.2 5.7-8.2 g/dL Albumin 4.1 3.2-4.8 g/dL Triglycerides Level 131 < 150 mg/dL Cholesterol Level 120 < 200 mg/dL LDL Cholesterol 70 < 100 mg/dL HDL Cholesterol 32 L 40-59 mg/dL Thyroid Stimulating Hormone (TSH) 1.22 0.55-4.78 uIU/mL Assessment Acute inferior wall ST-elevation myocardial infarction. Coronary artery disease status post PTCA of the RCA x1 CHELSEA (2020). Newly diagnosed atrial fibrillation. Hypertension. Dyslipidemia . Insulin-dependent diabetes mellitus. COPD with O2 dependence. Morbid obesity. Plan/Recommendation I agree with your ongoing assessment and care of plan. Patient has been seen by Thao Hernandez NP on my behalf, her and I discussed the plan with the patient. Scheduled for emergent cardiac catheterization and coronary angiogram. All risks and benefits of the procedure were discussed with the patient who agrees to proceed with intervention. All questions answered. Postprocedure obtain a transthoracic echocardiogram to evaluate cardiac function. Initiate amiodarone drip per pharmacy protocol given new onset atrial fibrillation. Avoid nitrates and diuretics at this time. Initiate IV fluids. ASA and Heparin IV administered pre-procedure. Additional plan as per the hospital course. Plan discussed with: Patient NYHA Physical activity limitations: NA Date of Service: Sep 28, 2024 Billing Provider: MERHAN SAAVEDRA MD Cardiology Common Codes: [id number] INP/OBS CARE (High), [id number] CARE 30-74 MIN MEHRAN SAAVEDRA MD Sep 28, 2024 13:29
[2024-09-29] VITALS (22 sets, daily range): BP systolic 105–146; BP diastolic 52–79; PULSE 65–98; RESP 12–18; TEMP 97.6–98.5; O2SAT 91–100
--- NOTE | 2024-09-29 06:05 | DVHOP ---
DATE OF SURGERY: 09/28/2024 TECHNIQUES PERFORMED: * Code STEMI. * Insertion of 6-Slovenian arterial line for right femoral artery. * Management of conscious sedation. * Left coronary angiography. * Mechanical thrombectomy of the left circumflex artery with a Penumbra catheter. * Balloon angioplasty of the left circumflex artery with 3.5 x 12 mm length semi-compliant balloon. * Stenting and angioplasty of the left circumflex artery with 4.5 x 15 mm length Prasanna Wilkes stent of [employer]. * Stenting and angioplasty of the proximal region of the left circumflex artery with 4.5 x 12 mm length [place] Wilkes stent of [employer] (total of two stents are deployed in the circumflex artery). * Intravascular ultrasound of the left main and also of the left brachial artery of the stented region. * Balloon angioplasty of the stent with a 4.5 x 15 mm length noncompliant balloon and expanded the stent to more than 4.75 mm in size from proximal all the way to distal region. * Right iliofemoral artery angiography. * Arteriotomy application of the Mynx device. COMPLICATIONS: None. ASSISTANTS: Assisted by our staff here Kb and other assistants here are in the room Grayson Cash Janice, and Ana. INDICATIONS: The patient had a code STEMI. Acute inferior wall myocardial infarction. The patient found to have the subtotally occluded large, dominant circumflex artery with thrombus formation probably proximal to the proximal region of the left circumflex artery and the patient had 10/10 chest pain. The patient also had ventricular fibrillation. He was also defibrillator. DESCRIPTION OF PROCEDURE: A 6-Slovenian arterial line also had been placed. In a standard manner. We put an XB 3.5, 6-Slovenian guiding catheter. IV Angiomax was given and runthrough wire was passed and subsequently we put a Penumbra catheter and Penumbra catheter was able to remove the clot and also subsequently we put a balloon 3.5 x 12 mm length semi-compliant balloon inflated all the way to 17 atmosphere. Size of the artery was made to 3.89 mm in size. Balloon was discontinued. Angiography was done. Subsequently, now we put a stent 4.5 x 15 mm length [place] Wilkes stent of [employer] deployed and inflated x 2 for almost 31 seconds subsequently for 21 seconds. Balloon had been discontinued. Angiography was done. Subsequently, now we found also proximal lesion. So, we put another stent 4.5 x 12 mm in length overlapping the first stent proximally and inflated and taken up to 15 atmosphere and the stent size was increased almost to 4.55 mm proximally, mid and distally. Subsequently, we did intravascular ultrasound, we found there was still some minor gap between the stent and the media, so now we put a 4.5 x 15 mm length noncompliant balloon, inflated and made the whole stented region to 4.8 mm in size, taking the balloon up to the 15 atmospheres and more from proximal, mid and distal region. So, the size of the stent was made to 4.8 mm proximally, mid and distally. Balloon had been discontinued. Angiography was done. Result was satisfactory. There was no complication. Balloon, wire, catheter all had been discontinued. We had done right iliofemoral artery angiography and subsequent Mynx device had been done and procedure went well. The patient was catheterization laboratory. The patient got Angiomax in the lab engineer. Left circumflex artery proximal to mid region have a thrombus formation and there was a MONSTER grade 2 flow has been noted. Post-procedure, there is no thrombus, there is no lesion, there is no stenosis and MONSTER grade 3 flow has been noted. CONCLUSION: This is a successful procedure without any complication. PLAN OF ACTION: Advised the patient to have aspirin and Brilinta, metoprolol and also the Lipitor. Jun Gomez MD MP/ANJELICA/MARIANELA/JAYNA TID: [id number] RECEIPT: [id number] KRISTIN
[2024-09-29 06:27] LABS: Basophils # (auto) 0.1 10 ^3/uL (0-0.2); Basophils % (auto) 0.6 % (0.0-2.0); Eosinophils # (auto) 0 10 ^3/uL (0-0.8); Eosinophils % (auto) 0.3 % (0.0-7.0); Hematocrit 36.9 % (41.0-53.0); Hemoglobin 12.1 g/dL (13.5-17.5); Lymphocytes # (auto) 2.2 10 ^3/uL (0.4-5.4); Lymphocytes % (auto) 17.4 % (10.0-50.0); Mean Corpuscular Hemoglobin 32.7 pg (28.0-32.0); Mean Corpuscular Hgb Conc. 32.8 g/dL (32.0-36.0); Mean Corpuscular Volume 99.6 fL (80.0-100.0); Monocytes # (auto) 1.2 10 ^3/uL (0-1.3); Monocytes % (auto) 9.6 % (0.0-12.0); Neutrophils % (auto) 72.1 % (37.0-80.0); Platelet Count (auto) 257 10^3/uL (140-450); Red Cell Distribution Width 13.1 % (11.8-14.3); White Blood Cell 12.5 10^3/uL (4.4-10.8)
[2024-09-29 06:44] LABS: Anion Gap 9 (5-15); Carbon Dioxide 27 mmol/L (20-31); Chloride 101 mmol/L (98-107); Potassium 3.9 mmol/L (3.5-5.1); Sodium 137 mmol/L (136-145)
[2024-09-29 06:45] LABS: Calcium 9.8 mg/dL (8.7-10.4)
[2024-09-29] MEDS: INSULIN LISPRO (HUMAN) 100 UNITS/ML ML SC SCH ×2 (06:47→08:22)
[2024-09-29 06:50] LABS: BUN/Creatinine Ratio 22.3 (10.0-20.0); Blood Urea Nitrogen 29 mg/dL (9-23); Glucose 148 mg/dL (74-106); Magnesium 2.2 mg/dL (1.6-2.6)
--- NOTE | 2024-09-29 08:38 | DVHPN2 ---
Assessment/Plan Assessment/Plan Progress note 69 yo M with IDDM, ex smoker, s/p CHELSEA x1 in RCA? 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 Patient had crushing substernal chest pain since 8.45 am this morning, underwent LHC with lcx occlusion, received CHELSEA x1 in LCx. Ex smoker, quit 6 years ago, 1 PPD for 45 years. Using insulin 70/30 80 units twice daily, glucose controlled per patient, compliant with meds. Had DONNY but unable to use CPAP. Prior to PCI patient had afib with hemodynamic instability. after PCI aptient was back in cathlab, tachy and was started on amiodarone drip. Hx of LGIB planned for colonoscopy. Seen today during rounds. had multiple runs of NSVT, transitioned to po amiodarone. transfer to telemetry. Patient high risk of ventricular arrhythmia. Physical exam Alert oriented x3 morbidly obese S1 s2 tachycardia b/l crackles abdomen distended b/l LE edema, skin changes labs ekg imaging telemetry reviewed Assessment and plan STEMI new onset pafib acute on chronic hypoxic respiratory failure Hypertensive heart disease likely HFpEF COPD group E on home O2 DONNY/OHS not on cpap IDDM diabetic neuropathy Macrocytic anemia Leukocytosis skin cancer s/p excisional bx LGIB? Cardio consult appreciated c/w o2 maintain spo2 >94% s/p PCI x1 mid lcx start DAPT asa brilinta echo BB KAVON/ARB tomorrow basal bolus insulin and iss c/w amio drip capsaicin for neuropathy hold AC as pt might have LGIB telemetry Diet cardiac DVT ppx lovenox Code status full code Goals of care curative Medical decision maker krysta dorantes 39 minutes critical care spent unstable for transfer Plan discussed with: Patient My Orders Orders - TRUMAN KIRKLAND MD Procedure Category Date Status Time Admit ADMIT 09/28/24 Transmitted 12:48 Code Status CODE 09/28/24 Transmitted 12:48 Review Orders With BAM 09/28/24 In Process Adm. 12:48 Advance Directive BAM 09/28/24 In Process 12:48 Patient Condition ORDERS 09/28/24 Transmitted 12:48 Allergies BAM 09/28/24 In Process 12:48 Enoxaparin Sodium PHA 09/29/24 In Process (Lovenox) 10:00 Albuterol Medneb PHA 09/28/24 In Process (Ventolin Medneb) 14:45 Ipratropium Medneb PHA 09/28/24 In Process (Atrovent Medneb) 14:45 Capsicum Cream PHA 09/28/24 In Process (Zostrix Cream) 14:45 Oxygen By Nasal RT 09/28/24 Transmitted Cannula 14:45 Electrocardigram EKG 09/28/24 Logged 15:10 Pharmacy [facility] 09/28/24 In Process Clarification: 22:59 Date of Service: Sep 29, 2024 Billing Provider: TRUMAN KIRKLAND MD Common Visit Codes: [id number] CARE 30-74 MIN TRUMAN KIRKLAND MD Sep 29, 2024 08:38
--- NOTE | 2024-09-29 09:11 | DVHSR ---
APPROVED REPORT EXAM: Two-dimensional and M-mode echocardiogram with Doppler and color Doppler. Blood Pressure: 103/56 mmHg INDICATION STEMI RISK FACTORS Height: 74, Weight: 370 DIMENSIONS LVDd5.9 (3.8-5.7cm)LA (2D)4.3 (1.9-4.0cm)Aortic Root4.1 (2.0-3.7cm) LVDs4.5 (2.5-4.0cm)LA (MM) (1.9-4.0cm)Aortic Cusp Exc2.3 (1.5-2.0cm) EF (%) (55-70%)Rt. Atrium4.0 (1.9-4.0cm)Asc. Aorta cm Mitral Valve MitralMitral Stenosis E wave1.09m/sMV Mean GR.2mmHg A wave0.54m/sMV Peak GR.4mmHg E/A ratio2.02D MVAcm2 DECEL [id number] 1/2 [id number] IVRTmsDop MVA2.42cm2 Aortic Valve Aortic ValveAortic Stenosis V11.07m/Mary Mean GR.4mmHg V21.38m/Mary Peak GR.8mmHg LVOT Diameter2.4 (1.8-2.4cm)Doppler AVA3.51cm2 Pulmonic Valve V20.90m/s Tricuspid Valve [id number] Other Information Technically limited study due to body habitus and patient position. Patient laying flat on his back unable to turn. Conclusion MILD LVH AND MILD LV DIASTOLIC DYSFUNCTION LV EF IS 55% AND IS LOW NORMAL INFERIOR WALL HYPOKINESIS MITRAL ANNULAR CALCIFICATION AORTIC SCLEROSIS NO EFFUSION MODERATELY DILATED RIGHT VENTRICLE AND IS SLIGHTLY HYPOKINETIC
[2024-09-29] MEDS: ASPirin 81 mg TAB PO SCH (09:57)
[2024-09-29] MEDS: ENOXAPARIN SOD 40 MG/0.4 ML SYRINGE SC SCH (09:58)
[2024-09-29] MEDS ORDERED: ASPirin 81 mg TAB PO SCH (10:00)
[2024-09-29] MEDS: AMIODARONE HCL 200 MG TAB ONE (10:02)
[2024-09-29] MEDS: AMIODARONE HCL 200 MG TAB PO SCH (10:03)
--- NOTE | 2024-09-29 11:46 | ECG ---
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
--- NOTE | 2024-09-29 14:39 | DVHPN2 ---
Progress Note - Dictate Date Seen: Sep 29, 2024 Medical Necessity Reason Pt with a Central, PICC or Fol: No Subjective Very well controlled dysglycemia over the past 24 hours. No acute events overnight. vital signs Vital Sign Date Time Temp Pulse Resp B/P (MAP) Pulse Ox O2 Delivery O2 Flow Rate FiO2 09/29/24 12:45 97.6 72 18 125/52 (76) 98 97.6 09/29/24 09:01 Nasal Cannula* 2 28 Total Intake and Output 09/28/24 09/28/24 09/29/24 15:00 23:00 07:00 Intake Total 960 ml Output Total 1200 ml 950 ml Balance -1200 ml 10 ml medications Current Medications Medications Dose Ordered Sig/Arnol Route Start Time Stop Time Status Last Admin Dose Admin Sodium Chloride 10 ml Q8HR IV 09/28/24 14:00 09/29/24 13:49 10 ML Acetaminophen 500 mg Q6HP PRN PO 09/28/24 12:15 Ticagrelor 90 mg BID PO 09/28/24 22:00 09/29/24 09:57 90 MG Aspirin 81 mg DAILY PO 09/29/24 10:00 09/29/24 09:57 81 MG Atorvastatin Calcium 80 mg HS PO 09/28/24 22:00 09/28/24 22:09 80 MG Metoprolol Tartrate 25 mg BID PO 09/28/24 22:00 09/29/24 09:58 25 MG Enoxaparin Sodium 40 mg DAILY SC 09/29/24 10:00 09/29/24 09:58 40 MG Albuterol 2.5 mg Q6HP PRN NEB 09/28/24 14:45 Ipratropium [place] 0.5 mg Q6HPRN PRN NEB 09/28/24 14:45 Capsaicin 1 applic Q8HPRN PRN TOP 09/28/24 14:45 Diagnostic Test (Pha) 1 strip ACHS 09/28/24 22:00 09/29/24 11:46 1 STRIP Insulin Human Lispro HS SC 09/28/24 22:00 09/28/24 22:16 3 UNITS Insulin Human Lispro AC SC 09/29/24 07:00 09/29/24 11:54 2 UNITS Dextrose 50 ml UD PRN IV 09/28/24 17:30 Insulin Glargine 30 units HS SC 09/28/24 18:00 09/28/24 18:46 30 UNITS Insulin Human Lispro 8 units AC SC 09/29/24 07:00 09/29/24 11:55 8 UNITS Lorazepam 1 mg Q8HP PRN PO 09/28/24 20:15 09/28/24 22:10 1 MG Amiodarone HCl 200 mg DAILY PO 09/29/24 10:00 09/29/24 10:03 200 MG laboratory and microbiology Laboratory Tests 09/29/24 06:11 Test 09/29/24 06:11 Range/Units Serum Glucose 148 H 74-106 mg/dL Assessment/Plan # CAD c/b STEMI s/p PCI to LCA # Type 2 DM with hyperglycemia # HTN - Continue glargine 30 units nightly - Continue lispro 8 units tidac - Continue moderate intensity correctional lispro tidac, qhs - Continue POC BG monitoring tidac, qhs - Hypoglycemia protocol - Recommend f/u as outpatient with endocrinology. Strong indication for GLP-1, SGLT2i therapy. Plan discussed with: Patient ANGELICA CHAMBERS MD Sep 29, 2024 14:38
--- NOTE | 2024-09-29 15:28 | DVHPN2 ---
Progress Note - Dictate Date Seen: Sep 29, 2024 Medical Necessity Reason Pt with a Central, PICC or Fol: No Subjective Patient was seen and evaluated in follow up. Patient was downgraded to telemetry. Patient underwent left heart cath, [place] selective left and right coronary artery angiography, left coronary angiography, mechanical thrombectomy of the left circumflex artery with a Penumbra catheter, balloon angioplasty of the left circumflex artery, stenting and angioplasty of the left circumflex artery, stenting and angioplasty of the proximal region of the left circumflex artery (total of two stents are deployed in the circumflex artery), balloon angioplasty of the stent. This is a successful procedure without any complication. Advised the patient to have aspirin and Brilinta, metoprolol and also the Lipitor. WBC 12.5, BUN 29. Telemetry reviewed. vital signs Vital Sign Date Time Temp Pulse Resp B/P (MAP) Pulse Ox O2 Delivery O2 Flow Rate FiO2 09/29/24 11:57 97.9 72 14 124/68 (86) 98 97.9 09/29/24 09:01 Nasal Cannula* 2 28 Total Intake and Output 09/28/24 09/28/24 09/29/24 15:00 23:00 07:00 Intake Total 960 ml Output Total 1200 ml 950 ml Balance -1200 ml 10 ml medications Current Medications Medications Dose Ordered Sig/Arnol Route Start Time Stop Time Status Last Admin Dose Admin Sodium Chloride 10 ml Q8HR IV 09/28/24 14:00 09/29/24 06:47 10 ML Acetaminophen 500 mg Q6HP PRN PO 09/28/24 12:15 Ticagrelor 90 mg BID PO 09/28/24 22:00 09/29/24 09:57 90 MG Aspirin 81 mg DAILY PO 09/29/24 10:00 09/29/24 09:57 81 MG Atorvastatin Calcium 80 mg HS PO 09/28/24 22:00 09/28/24 22:09 80 MG Metoprolol Tartrate 25 mg BID PO 09/28/24 22:00 09/29/24 09:58 25 MG Enoxaparin Sodium 40 mg DAILY SC 09/29/24 10:00 09/29/24 09:58 40 MG Albuterol 2.5 mg Q6HP PRN NEB 09/28/24 14:45 Ipratropium [place] 0.5 mg Q6HPRN PRN NEB 09/28/24 14:45 Capsaicin 1 applic Q8HPRN PRN TOP 09/28/24 14:45 Diagnostic Test (Pha) 1 strip ACHS 09/28/24 22:00 09/29/24 11:46 1 STRIP Insulin Human Lispro HS SC 09/28/24 22:00 09/28/24 22:16 3 UNITS Insulin Human Lispro AC SC 09/29/24 07:00 09/29/24 11:54 2 UNITS Dextrose 50 ml UD PRN IV 09/28/24 17:30 Insulin Glargine 30 units HS SC 09/28/24 18:00 09/28/24 18:46 30 UNITS Insulin Human Lispro 8 units AC SC 09/29/24 07:00 09/29/24 11:55 8 UNITS Lorazepam 1 mg Q8HP PRN PO 09/28/24 20:15 09/28/24 22:10 1 MG Amiodarone HCl 200 mg DAILY PO 09/29/24 10:00 09/29/24 10:03 200 MG objective GENERAL: Awake, alert, oriented. Cool, pale and diaphoretic. Morbidly obese. LUNGS: Decreased breath sounds. CARDIOVASCULAR: Heart sounds are good. ABDOMEN: Soft. SKIN: Hyperpigmentation to BLEs. laboratory and microbiology Laboratory Tests 09/29/24 06:11 Test 09/29/24 06:11 Range/Units Serum Glucose 148 H 74-106 mg/dL Problem List Acute inferior wall ST-elevation myocardial infarction. Coronary artery disease status post PTCA of the RCA x1 CHELSEA (2020). Newly diagnosed atrial fibrillation. Hypertension. Dyslipidemia . Insulin-dependent diabetes mellitus. COPD with O2 dependence. Morbid obesity. Assessment/Plan Continued all current supportive medical care. Echocardiogram. Amiodarone. DVT prophylactics. Aspirin, Lipitor, Metoprolol, Brilinta. Additional plan as per the hospital course. Plan discussed with: Patient MEHRAN SAAVEDRA MD Sep 29, 2024 12:21
[2024-09-30] VITALS (10 sets, daily range): BP systolic 102–135; BP diastolic 33–65; PULSE 59–80; RESP 18–20; TEMP 97.8–98.1; O2SAT 95–99
[2024-09-30 06:04] LABS: Basophils # (auto) 0 10 ^3/uL (0-0.2); Basophils % (auto) 0.2 % (0.0-2.0); Eosinophils # (auto) 0.1 10 ^3/uL (0-0.8); Eosinophils % (auto) 1.3 % (0.0-7.0); Hemoglobin 11.7 g/dL (13.5-17.5); Lymphocytes # (auto) 2.2 10 ^3/uL (0.4-5.4); Lymphocytes % (auto) 26.1 % (10.0-50.0); Mean Corpuscular Hemoglobin 33.3 pg (28.0-32.0); Mean Corpuscular Hgb Conc. 33.3 g/dL (32.0-36.0); Mean Corpuscular Volume 99.9 fL (80.0-100.0); Monocytes # (auto) 1.1 10 ^3/uL (0-1.3); Monocytes % (auto) 12.4 % (0.0-12.0); Neutrophils # (auto) 5.1 10 ^3/uL (1.6-8.6); Nucleated Red Blood Cells % 0.1 %; Platelet Count (auto) 210 10^3/uL (140-450); Red Cell Distribution Width 13.1 % (11.8-14.3); White Blood Cell 8.6 10^3/uL (4.4-10.8)
[2024-09-30 06:18] LABS: Albumin 3.9 g/dL (3.2-4.8); Alkaline Phosphatase 53 U/L (46-116); Anion Gap 5 (5-15); BUN/Creatinine Ratio 18.1 (10.0-20.0); Calcium 9.8 mg/dL (8.7-10.4); Chloride 105 mmol/L (98-107); Magnesium 2.4 mg/dL (1.6-2.6); Potassium 4.3 mmol/L (3.5-5.1); Sodium 141 mmol/L (136-145); Total Protein 6.7 g/dL (5.7-8.2)
[2024-09-30 06:19] LABS: Bilirubin, Total 0.5 mg/dL (0.2-1.0); Phosphorus 4.2 mg/dL (2.4-5.1)
[2024-09-30 06:29] LABS: Alanine Aminotransferase 45 U/L (7-40); Aspartate Aminotransferase 139 U/L (13-40); Blood Urea Nitrogen 26 mg/dL (9-23); Carbon Dioxide 31 mmol/L (20-31); Glucose 125 mg/dL (74-106)
--- NOTE | 2024-09-30 15:20 | DVHPN2 ---
Assessment/Plan Assessment/Plan Progress note 69 yo M with IDDM, ex smoker, s/p CHELSEA x1 in RCA? 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 Patient had crushing substernal chest pain since 8.45 am this morning, underwent LHC with lcx occlusion, received CHELSEA x1 in LCx. Ex smoker, quit 6 years ago, 1 PPD for 45 years. Using insulin 70/30 80 units twice daily, glucose controlled per patient, compliant with meds. Had DONNY but unable to use CPAP. Prior to PCI patient had afib with hemodynamic instability. after PCI aptient was back in cathlab, tachy and was started on amiodarone drip. Hx of LGIB planned for colonoscopy. Seen today during rounds. had multiple runs of NSVT, transitioned to po amiodarone. transfer to telemetry. Patient high risk of ventricular arrhythmia. titrating up meds Physical exam Alert oriented x3 morbidly obese S1 s2 tachycardia b/l crackles abdomen distended b/l LE edema, skin changes labs ekg imaging telemetry reviewed Assessment and plan STEMI new onset pafib acute on chronic hypoxic respiratory failure Hypertensive heart disease likely HFpEF COPD group E on home O2 DONNY/OHS not on cpap IDDM diabetic neuropathy Macrocytic anemia Leukocytosis skin cancer s/p excisional bx LGIB likely hemorrhoids Cardio consult appreciated c/w o2 maintain spo2 >94% s/p PCI x1 mid lcx start DAPT asa brilinta echo BB KAVON/ARB basal bolus insulin and iss c/w amio drip transition to PO capsaicin for neuropathy hold ac for afib telemetry Diet cardiac DVT ppx lovenox Code status full code Goals of care curative Medical decision maker krysta dorantes 40 minutes critical care spent unstable for transfer Plan discussed with: Patient Date of Service: Sep 30, 2024 Billing Provider: TRUMAN KIRKLAND MD Common Visit Codes: [id number] INP/OBS CARE(HIGH) TRUMAN KIRKLAND MD Sep 30, 2024 15:20
--- NOTE | 2024-09-30 18:10 | DVHPN2 ---
Progress Note - Dictate Date Seen: Sep 30, 2024 Medical Necessity Reason Pt with a Central, PICC or Fol: No Subjective Patient was seen and evaluated in follow up. Patient is on 3 LPM NC. Patient denies any complaints. He had multiple runs of NSVT. BUN 26, SERVICES ENGINEER 1.44, AST 139, ALT 45. Echocardiogram shows an EF of 55%. Telemetry reviewed. vital signs Vital Sign Date Time Temp Pulse Resp B/P (MAP) Pulse Ox O2 Delivery O2 Flow Rate FiO2 09/30/24 11:39 96 Nasal Cannula* 3 32 09/30/24 09:56 72 116/56 09/30/24 09:00 98.1 19 98.1 Total Intake and Output 09/29/24 09/29/24 09/30/24 15:00 23:00 07:00 Intake Total 480 ml 280 ml 650 ml Output Total 1100 ml Balance 480 ml 280 ml -450 ml medications Current Medications Medications Dose Ordered Sig/Arnol Route Start Time Stop Time Status Last Admin Dose Admin Sodium Chloride 10 ml Q8HR IV 09/28/24 14:00 09/30/24 06:02 10 ML Acetaminophen 500 mg Q6HP PRN PO 09/28/24 12:15 Ticagrelor 90 mg BID PO 09/28/24 22:00 09/30/24 09:55 90 MG Aspirin 81 mg DAILY PO 09/29/24 10:00 09/30/24 09:55 81 MG Atorvastatin Calcium 80 mg HS PO 09/28/24 22:00 09/29/24 21:03 80 MG Metoprolol Tartrate 25 mg BID PO 09/28/24 22:00 09/30/24 09:56 25 MG Enoxaparin Sodium 40 mg DAILY SC 09/29/24 10:00 09/30/24 09:55 40 MG Albuterol 2.5 mg Q6HP PRN NEB 09/28/24 14:45 Ipratropium [place] 0.5 mg Q6HPRN PRN NEB 09/28/24 14:45 Capsaicin 1 applic Q8HPRN PRN TOP 09/28/24 14:45 Diagnostic Test (Pha) 1 strip ACHS 09/28/24 22:00 09/30/24 05:59 1 STRIP Insulin Human Lispro HS SC 09/28/24 22:00 09/28/24 22:16 3 UNITS Insulin Human Lispro AC SC 09/29/24 07:00 09/29/24 17:10 9 UNITS Dextrose 50 ml UD PRN IV 09/28/24 17:30 Insulin Glargine 30 units HS SC 09/28/24 18:00 09/28/24 18:46 30 UNITS Insulin Human Lispro 8 units AC SC 09/29/24 07:00 09/29/24 17:10 8 UNITS Lorazepam 1 mg Q8HP PRN PO 09/28/24 20:15 09/29/24 21:03 1 MG Amiodarone HCl 200 mg DAILY PO 09/29/24 10:00 09/30/24 09:56 200 MG objective GENERAL: Awake, alert, oriented. Cool, pale and diaphoretic. Morbidly obese. LUNGS: Decreased breath sounds. CARDIOVASCULAR: Heart sounds are good. ABDOMEN: Soft. SKIN: Hyperpigmentation to BLEs. laboratory and microbiology Laboratory Tests 09/30/24 04:29 Test 09/30/24 04:29 Range/Units Serum Glucose 125 H 74-106 mg/dL Problem List Acute inferior wall ST-elevation myocardial infarction. Coronary artery disease status post PTCA of the RCA x1 CHELSEA (2020). Newly diagnosed atrial fibrillation. Hypertension. Dyslipidemia . Insulin-dependent diabetes mellitus. COPD with O2 dependence. Morbid obesity. Assessment/Plan Continued all current supportive medical care. Amiodarone. DVT prophylactics. Aspirin, Lipitor, Metoprolol, Brilinta. Additional plan as per the hospital course. Plan discussed with: Patient MEHRAN SAAVEDRA MD Sep 30, 2024 12:09
[2024-09-30] MEDS: METOPROLOL TARTRATE 25 MG TAB PO SCH (21:57)
[2024-10-01] VITALS (10 sets, daily range): BP systolic 118–151; BP diastolic 38–64; PULSE 60–76; RESP 16–20; TEMP 97.6–98.5; O2SAT 94–99
[2024-10-01 07:21] LABS: Basophils # (auto) 0 10 ^3/uL (0-0.2); Basophils % (auto) 0.3 % (0.0-2.0); Eosinophils # (auto) 0.2 10 ^3/uL (0-0.8); Eosinophils % (auto) 2.2 % (0.0-7.0); Hematocrit 35.9 % (41.0-53.0); Hemoglobin 11.8 g/dL (13.5-17.5); Lymphocytes % (auto) 21.8 % (10.0-50.0); Mean Corpuscular Hemoglobin 32.9 pg (28.0-32.0); Mean Corpuscular Volume 99.8 fL (80.0-100.0); Monocytes # (auto) 1.1 10 ^3/uL (0-1.3); Monocytes % (auto) 11.8 % (0.0-12.0); Neutrophils # (auto) 5.9 10 ^3/uL (1.6-8.6); Neutrophils % (auto) 63.9 % (37.0-80.0); Platelet Count (auto) 228 10^3/uL (140-450); Red Cell Distribution Width 12.9 % (11.8-14.3); White Blood Cell 9.2 10^3/uL (4.4-10.8)
[2024-10-01 07:32] LABS: Anion Gap 8 (5-15); Chloride 102 mmol/L (98-107); Potassium 3.9 mmol/L (3.5-5.1); Sodium 141 mmol/L (136-145)
[2024-10-01 07:33] LABS: Calcium 9.8 mg/dL (8.7-10.4); Carbon Dioxide 31 mmol/L (20-31)
[2024-10-01 07:38] LABS: BUN/Creatinine Ratio 16.8 (10.0-20.0)
[2024-10-01 07:39] LABS: Magnesium 2.3 mg/dL (1.6-2.6)
[2024-10-01 07:47] LABS: Blood Urea Nitrogen 24 mg/dL (9-23); Glucose 122 mg/dL (74-106)
--- NOTE | 2024-10-01 14:02 | DVHPN2 ---
Assessment/Plan Assessment/Plan Progress note 69 yo M with IDDM, ex smoker, s/p CHELSEA x1 in RCA? 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 Patient had crushing substernal chest pain since 8.45 am this morning, underwent LHC with lcx occlusion, received CHELSEA x1 in LCx. Ex smoker, quit 6 years ago, 1 PPD for 45 years. Using insulin 70/30 80 units twice daily, glucose controlled per patient, compliant with meds. Had DONNY but unable to use CPAP. Prior to PCI patient had afib with hemodynamic instability. after PCI aptient was back in cathlab, tachy and was started on amiodarone drip. Hx of LGIB planned for colonoscopy. Seen today during rounds. brett overnight, lowering down BB again. CT for back pain Physical exam Alert oriented x3 morbidly obese S1 s2 tachycardia b/l crackles abdomen distended b/l LE edema, skin changes labs ekg imaging telemetry reviewed Assessment and plan STEMI new onset pafib acute on chronic hypoxic respiratory failure Hypertensive heart disease likely HFpEF COPD group E on home O2 DONNY/OHS not on cpap IDDM diabetic neuropathy Macrocytic anemia Leukocytosis skin cancer s/p excisional bx LGIB likely hemorrhoids Cardio consult appreciated c/w o2 maintain spo2 >94% s/p PCI x1 mid lcx start DAPT asa brilinta echo BB KAVON/ARB basal bolus insulin and iss c/w amio drip transition to PO capsaicin for neuropathy hold ac for afib telemetry ct for back pain Diet cardiac DVT ppx lovenox Code status full code Goals of care curative Medical decision maker krysta dorantes unstable for transfer Plan discussed with: Patient My Orders Orders - TRUMAN KIRKLAND MD Procedure Category Date Status Time Metoprolol Tartrate PHA 09/30/24 In Process Tablet (Lopressor Ta 22:00 Metoprolol Tartrate PHA 10/01/24 Verified Tablet (Lopressor Ta 22:[address] Lumbar Spine [address] W [address] 10/01/24 Verified 14:00 Basic Metabolic Panel LAB 10/02/24 Verified 04:00 Complete Blood Count LAB 10/02/24 Verified 04:00 Date of Service: Oct 01, 2024 Billing Provider: TRUMAN KIRKLAND MD Common Visit Codes: [id number] INP/OBS CARE(HIGH) TRUMAN KIRKLAND MD Oct 01, 2024 14:02
--- NOTE | 2024-10-01 15:40 | DVH ---
CT LS SPINE WO CONTRAST Date: 10/01/2024 02:59 PM History: back pain Comparison: None TECHNIQUE: Multiple axial CT images of the lumbosacral spine were obtained using bone algorithm. Axial and coron al reformatting was done. Bone and soft tissue windows were reviewed. Radiation Dose Information: CT Dose: CTDI volume is 38.58 mGy. Dose-length product is 1575.69 mGy*cm FINDINGS: No CT evidence of definite acute fracture, spinal dislocation, or significant appearing acute subluxa tion is seen. The visualized paraspinal soft tissues are grossly unremarkable. T12-L1 There is no evidence of central spinal canal or neuroforaminal stenosis. L1-L2 There is no evidence of central spinal canal or neuroforaminal stenosis. L2-L3 diffuse annular bulging of the disc. The neural foramen appear clear L3-L4 diffuse annular bulging of the disc with opacification of right and left neural foramen with di sc material L4-L5 diffuse annular bulge of the disc with mild spinal stenosis and opacification of the right neur al foramen with disc material L5-S1 There is no evidence of central spinal canal or neuroforaminal stenosis. IMPRESSION: 1. Diffuse annular bulge of the disc with mild spinal stenosis and opacification of the right and lef t neural foramen with disc material at L3-4 and L4-5. 2. No compressed vertebra. 3. No spondylolisthesis. All CT scans at this medical facility are performed using dose modulation techniques as appropriate to a performed exam including the following: Automated exposure control was utilized; adjustment of t he MA and/or KV according to patient size; and use of iterative reconstruction technique.
[2024-10-01] MEDS: METOPROLOL TARTRATE 25 MG TAB PO SCH (21:10)
--- NOTE | 2024-10-01 22:16 | DVHPN2 ---
Progress Note - Dictate Date Seen: Oct 01, 2024 Medical Necessity Reason Pt with a Central, PICC or Fol: No Subjective Patient was seen and evaluated in follow up. Overnight, the patient had bradycardia with HR in the 40's. He also had 2 additional episodes of bradycardia this morning. BB was lowered. Patient is on 3 LPM NC. 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 Telemetry reviewed. vital signs Vital Sign Date Time Temp Pulse Resp B/P (MAP) Pulse Ox O2 Delivery O2 Flow Rate FiO2 10/01/24 10:30 55 120/50 10/01/24 09:00 98.0 16 98 98.0 10/01/24 08:00 Nasal Cannula* 3 32 Total Intake and Output 09/30/24 09/30/24 10/01/24 15:00 23:00 07:00 Intake Total 1150 ml 700 ml Output Total 950 ml 550 ml Balance 200 ml 150 ml medications Current Medications Medications Dose Ordered Sig/Arnol Route Start Time Stop Time Status Last Admin Dose Admin Sodium Chloride 10 ml Q8HR IV 09/28/24 14:00 10/01/24 12:54 10 ML Acetaminophen 500 mg Q6HP PRN PO 09/28/24 12:15 Ticagrelor 90 mg BID PO 09/28/24 22:00 10/01/24 09:33 90 MG Aspirin 81 mg DAILY PO 09/29/24 10:00 10/01/24 09:33 81 MG Atorvastatin Calcium 80 mg HS PO 09/28/24 22:00 09/30/24 21:44 80 MG Enoxaparin Sodium 40 mg DAILY SC 09/29/24 10:00 10/01/24 09:32 40 MG Albuterol 2.5 mg Q6HP PRN NEB 09/28/24 14:45 Ipratropium [place] 0.5 mg Q6HPRN PRN NEB 09/28/24 14:45 Capsaicin 1 applic Q8HPRN PRN TOP 09/28/24 14:45 Diagnostic Test (Pha) 1 strip ACHS 09/28/24 22:00 10/01/24 11:40 1 STRIP Insulin Human Lispro HS SC 09/28/24 22:00 09/30/24 21:48 2 UNITS Insulin Human Lispro AC SC 09/29/24 07:00 09/30/24 17:00 3 UNITS Dextrose 50 ml UD PRN IV 09/28/24 17:30 Insulin Glargine 30 units HS SC 09/28/24 18:00 09/30/24 21:49 30 UNITS Insulin Human Lispro 8 units AC SC 09/29/24 07:00 09/30/24 17:00 8 UNITS Lorazepam 1 mg Q8HP PRN PO 09/28/24 20:15 09/30/24 21:53 1 MG Amiodarone HCl 200 mg DAILY PO 09/29/24 10:00 10/01/24 09:33 200 MG Metoprolol Tartrate 50 mg BID PO 09/30/24 22:00 10/01/24 09:33 50 MG objective GENERAL: Awake, alert, oriented. Cool, pale and diaphoretic. Morbidly obese. LUNGS: Decreased breath sounds. CARDIOVASCULAR: Heart sounds are good. ABDOMEN: Soft. SKIN: Hyperpigmentation to BLEs. laboratory and microbiology Laboratory Tests 10/01/24 06:12 Test 10/01/24 06:12 Range/Units Serum Glucose 122 H 74-106 mg/dL Problem List Acute inferior wall ST-elevation myocardial infarction. Coronary artery disease status post PTCA of the RCA x1 CHELSEA (2020). Newly diagnosed atrial fibrillation. Hypertension. Dyslipidemia . Insulin-dependent diabetes mellitus. COPD with O2 dependence. Morbid obesity. Assessment/Plan Continued all current supportive medical care. Amiodarone. DVT prophylactics. Aspirin, Lipitor, Metoprolol, Brilinta. Additional plan as per the hospital course. Dietary Evaluation Review Recommendations by RD: Dietary education by RD Comments: 1) Continue to promote optimal PO intake 2) Refer to outpatient RD for weight management 3) F/u with cardiology and oncology 4) Continue to monitor I&O, labs, and skin integrity Expected Outcomes/Goals: 1) appetite and labs to improve 2) f/u in 3-5 days Plan discussed with: Patient MEHRAN SAAVEDRA MD Oct 01, 2024 13:28
[2024-10-02] VITALS (8 sets, daily range): BP systolic 132–159; BP diastolic 51–74; PULSE 76–106; RESP 19–20; TEMP 97.9–99.1; O2SAT 92–99
[2024-10-02 08:18] LABS: Anion Gap 9 (5-15); Calcium 9.4 mg/dL (8.7-10.4); Carbon Dioxide 28 mmol/L (20-31); Chloride 101 mmol/L (98-107); Potassium 4.6 mmol/L (3.5-5.1); Sodium 138 mmol/L (136-145)
[2024-10-02 08:24] LABS: BUN/Creatinine Ratio 16.3 (10.0-20.0); Blood Urea Nitrogen 22 mg/dL (9-23)
[2024-10-02 08:25] LABS: Basophils # (auto) 0 10 ^3/uL (0-0.2); Basophils % (auto) 0.3 % (0.0-2.0); Eosinophils # (auto) 0 10 ^3/uL (0-0.8); Eosinophils % (auto) 0.3 % (0.0-7.0); Hematocrit 35.4 % (41.0-53.0); Hemoglobin 11.7 g/dL (13.5-17.5); Lymphocytes # (auto) 0.9 10 ^3/uL (0.4-5.4); Lymphocytes % (auto) 5.8 % (10.0-50.0); Mean Corpuscular Hemoglobin 32.9 pg (28.0-32.0); Mean Corpuscular Volume 99.9 fL (80.0-100.0); Monocytes % (auto) 6.4 % (0.0-12.0); Neutrophils # (auto) 13.7 10 ^3/uL (1.6-8.6); Neutrophils % (auto) 87.2 % (37.0-80.0); Platelet Count (auto) 233 10^3/uL (140-450); Red Blood Cells 3.55 10^6/uL (4.5-5.90); Red Cell Distribution Width 12.8 % (11.8-14.3); White Blood Cell 15.7 10^3/uL (4.4-10.8)
[2024-10-02 08:27] LABS: Glucose 142 mg/dL (74-106)
--- NOTE | 2024-10-02 14:00 | DVHDS2 ---
Discharge Summary Date of Admission Sep 28, 2024 at 12:15 Date of Discharge: Oct 02, 2024 Labs/Diagnostic Data: Laboratory Results Test 10/02/24 10:50 10/02/24 05:55 10/01/24 06:12 09/30/24 04:29 POC Glucose 126 mg/dl (70-106) White Blood Count 15.7 10^3/uL (4.4-10.8) Red Blood Count 3.55 10^6/uL (4.5-5.90) Hemoglobin 11.7 g/dL (13.5-17.5) Hematocrit 35.4 % (41.0-53.0) Mean Corpuscular Volume 99.9 fL (80.0-100.0) Mean Corpuscular Hemoglobin 32.9 pg (28.0-32.0) Mean Corpuscular Hemoglobin Concent 33.0 g/dL (32.0-36.0) Red Cell Distribution Width 12.8 % (11.8-14.3) Platelet Count 233 10^3/uL (140-450) Mean Platelet Volume 9.1 fL (6.9-10.8) Neutrophils (%) (Auto) 87.2 % (37.0-80.0) Lymphocytes (%) (Auto) 5.8 % (10.0-50.0) Monocytes (%) (Auto) 6.4 % (0.0-12.0) Eosinophils (%) (Auto) 0.3 % (0.0-7.0) Basophils (%) (Auto) 0.3 % (0.0-2.0) Neutrophils # (Auto) 13.7 10 ^3/uL (1.6-8.6) Lymphocytes # (Auto) 0.9 10 ^3/uL (0.4-5.4) Monocytes # (Auto) 1.0 10 ^3/uL (0-1.3) Eosinophils # (Auto) 0 10 ^3/uL (0-0.8) Basophils # (Auto) 0 10 ^3/uL (0-0.2) Nucleated Red Blood Cells 0.0 % Sodium Level 138 mmol/L (136-145) Potassium Level 4.6 mmol/L (3.5-5.1) Chloride Level 101 mmol/L (98-107) Carbon Dioxide Level 28 mmol/L (20-31) Anion Gap 9 (5-15) Blood Urea Nitrogen 22 mg/dL (9-23) Creatinine 1.35 mg/dL (0.700-1.30) Glomerular Filtration Rate Calc 56 mL/min (>90) BUN/Creatinine Ratio 16.3 (10.0-20.0) Serum Glucose 142 mg/dL (74-106) Calcium Level 9.4 mg/dL (8.7-10.4) Phosphorus Level 4.0 mg/dL (2.4-5.1) Magnesium Level 2.3 mg/dL (1.6-2.6) Total Bilirubin 0.5 mg/dL (0.2-1.0) Aspartate Amino Transferase (AST) 139 U/L (13-40) Alanine Aminotransferase (ALT) 45 U/L (7-40) Alkaline Phosphatase 53 U/L (46-116) Total Protein 6.7 g/dL (5.7-8.2) Albumin 3.9 g/dL (3.2-4.8) Test 09/28/24 10:00 Prothrombin Time 11.0 sec (9.3-11.8) Prothrombin Time INR 1.04 (0.9-1.15) Hemoglobin A1c 6.7 % A1C (<5.7) Troponin I High Sensitivity 6 ng/L (</=54) B-Type Natriuretic Peptide 36.94 pg/mL (0-100) Triglycerides Level 131 mg/dL (< 150) Cholesterol Level 120 mg/dL (< 200) LDL Cholesterol 70 mg/dL (< 100) HDL Cholesterol 32 mg/dL (40-59) Thyroid Stimulating Hormone (TSH) 1.22 uIU/mL (0.55-4.78) Other Laboratory Tests 10/02/24 05:55 Brief Hx & Hospital Course: 69 yo M with IDDM, ex smoker, s/p CHELSEA x1 in RCA? 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 Patient had crushing substernal chest pain since 8.45 am this morning, underwent LHC with lcx occlusion, received CHELSEA x1 in LCx. Ex smoker, quit 6 years ago, 1 PPD for 45 years. Using insulin 70/30 80 units twice daily, glucose controlled per patient, compliant with meds. Had DONNY but unable to use CPAP. Prior to PCI patient had afib with hemodynamic instability. after PCI aptient was back in cathlab, tachy and was started on amiodarone drip. Hx of LGIB planned for colonoscopy as outpatient. Had episodes of NSVT in tele, 1 episode of SVT today, uptitration of betablocker with bradycardia. stable to DC home, can follow up with cardio with [place] Condition at Discharge: Good Final Diagnosis/Problems List STEMI new onset pafib acute on chronic hypoxic respiratory failure Hypertensive heart disease likely HFpEF COPD group E on home O2 DONNY/OHS not on cpap IDDM diabetic neuropathy Macrocytic anemia Leukocytosis skin cancer s/p excisional bx LGIB likely hemorrhoids Discharge Disposition: Home 39 Discharge Statement: "Patient was advised to return to the ER or call 911 if any headaches, dizziness, shortness of breath, chest pain, abdominal pain, bleeding, fevers, or worsening of medical condition. Patient was counseled about treatment plan, medications, possible side effects, patientverbalized understanding. All questions were answered to the best of my ability. This discharge took greater then 30 minutes in planning, reviewing documentation, counseling the patient, and discussing with other team members." ASSESSMENT ASSESSMENT Assessment Date of Service: Oct 02, 2024 Billing Provider: TRUMAN KIRKLAND MD Common Visit Codes: [id number] DISCH DAY >30min TRUMAN KIRKLAND MD Oct 02, 2024 14:00
[2024-10-02] MEDS ORDERED: AMIO200T13 PO ×2 (14:13→18:37)
[2024-10-02] MEDS ORDERED: TICA90TA PO ×2 (14:13→18:37)
[2024-10-02] MEDS ORDERED: METO-158 PO ×2 (14:13→18:37)
[2024-10-02] MEDS ORDERED: ATOR-47 PO (14:13)
[2024-10-02] MEDS ORDERED: ASPI-325 PO (14:13)
[2024-10-02] MEDS ORDERED: ATOR80TA PO (18:37)
[2024-10-02] MEDS ORDERED: ASPI81TA28 PO (18:37)
--- NOTE | 2024-10-02 23:06 | DVHPN2 ---
Progress Note - Dictate Date Seen: Oct 02, 2024 Medical Necessity Reason Pt with a Central, PICC or Fol: No Subjective Patient was seen and evaluated in follow up. Patient has no new complaints at this time. Patient denies any cardiac symptoms. Patient is cardiac stable for discharge. Telemetry reviewed. vital signs Vital Sign Date Time Temp Pulse Resp B/P (MAP) Pulse Ox O2 Delivery O2 Flow Rate FiO2 10/02/24 17:42 98.7 85 19 98 10/02/24 16:52 154/57 (89) 10/02/24 08:00 Nasal Cannula* 3 32 Total Intake and Output 10/01/24 10/01/24 10/02/24 15:00 23:00 07:00 Intake Total 650 ml 600 ml Output Total 1430 ml Balance 650 ml -830 ml medications Current Medications Medications Dose Ordered Sig/Arnol Route Start Time Stop Time Status Last Admin Dose Admin Albuterol 2.5 mg Q6HP PRN NEB 09/28/24 14:45 Cancel Ipratropium [place] 0.5 mg Q6HPRN PRN NEB 09/28/24 14:45 Cancel objective GENERAL: Awake, alert, oriented. Cool, pale and diaphoretic. Morbidly obese. LUNGS: Decreased breath sounds. CARDIOVASCULAR: Heart sounds are good. ABDOMEN: Soft. SKIN: Hyperpigmentation to BLEs. laboratory and microbiology Laboratory Tests 10/02/24 05:55 Test 10/02/24 05:55 Range/Units Serum Glucose 142 H 74-106 mg/dL Problem List Acute inferior wall ST-elevation myocardial infarction. Coronary artery disease status post PTCA of the RCA x1 [place] (2020). Newly diagnosed atrial fibrillation. Hypertension. Dyslipidemia . Insulin-dependent diabetes mellitus. COPD with O2 dependence. Morbid obesity. Assessment/Plan Continued all current supportive medical care. Amiodarone. DVT prophylactics. Aspirin, Lipitor, Metoprolol, Brilinta. Additional plan as per the hospital course. Dietary Evaluation Review Recommendations by RD: Dietary education by RD Comments: 1) Continue to promote optimal PO intake 2) Refer to outpatient RD for weight management 3) F/u with cardiology and oncology 4) Continue to monitor I&O, labs, and skin integrity Expected Outcomes/Goals: 1) appetite and labs to improve 2) f/u in 3-5 days Plan discussed with: Patient MEHRAN SAAVEDRA MD Oct 02, 2024 23:06
== END 2024-10-02 18:48 | disposition home or self-care (01) | DRG 321 ==
LOC: EDBD 09:47 → ER 09:47 → OVERFLOW 12:15 → CATH ICU 16:11 → TELE-CENTR 09-29 12:27
PROVIDERS: ADMIT Student in an Organized Health Care Education/Training Program; ATTEND Student in an Organized Health Care Education/Training Program
PROC: 04HY32Z Insertion of Monitoring Device into Lower Artery, Percutaneous Approach (ICD-10-PCS; principal; 2024-09-28)
PROC: 4A023N7 Measurement of Cardiac Sampling and Pressure, Left Heart, Percutaneous Approach (ICD-10-PCS; 2024-09-28)
PROC: B211YZZ Fluoroscopy of Multiple Coronary Arteries using Other Contrast (ICD-10-PCS; 2024-09-28)
PROC: B215YZZ Fluoroscopy of Left Heart using Other Contrast (ICD-10-PCS; 2024-09-28)
PROC: 027035Z Dilation of Coronary Artery, One Artery with Two Drug-eluting Intraluminal Devices, Percutaneous Approach (ICD-10-PCS; 2024-09-28)
PROC: 02C03ZZ Extirpation of Matter from Coronary Artery, One Artery, Percutaneous Approach (ICD-10-PCS; 2024-09-28)
PROC: B240ZZ3 Ultrasonography of Single Coronary Artery, Intravascular (ICD-10-PCS; 2024-09-28)
PROC: B41FYZZ Fluoroscopy of Right Lower Extremity Arteries using Other Contrast (ICD-10-PCS; 2024-09-28)
DX: I21.19 ST elevation (STEMI) myocardial infarction involving other coronary artery of inferior wall (principal); J96.21 Acute and chronic respiratory failure with hypoxia; E66.2 Morbid (severe) obesity with alveolar hypoventilation; I47.10 Supraventricular tachycardia, unspecified; I47.20 Ventricular tachycardia, unspecified; I50.32 Chronic diastolic (congestive) heart failure; Z68.42 Body mass index [BMI] 45.0-49.9, adult; I25.10 Atherosclerotic heart disease of native coronary artery without angina pectoris; I48.0 Paroxysmal atrial fibrillation; I11.0 Hypertensive heart disease with heart failure; J44.9 Chronic obstructive pulmonary disease, unspecified; K64.9 Unspecified hemorrhoids; E78.5 Hyperlipidemia, unspecified; E11.40 Type 2 diabetes mellitus with diabetic neuropathy, unspecified; F17.210 Nicotine dependence, cigarettes, uncomplicated; C44.90 Unspecified malignant neoplasm of skin, unspecified; E11.65 Type 2 diabetes mellitus with hyperglycemia; D53.9 Nutritional anemia, unspecified; D72.829 Elevated white blood cell count, unspecified; Z99.81 Dependence on supplemental oxygen; Z79.4 Long term (current) use of insulin; Z79.82 Long term (current) use of aspirin; Z79.84 Long term (current) use of oral hypoglycemic drugs; Z79.899 Other long term (current) drug therapy
CPT/HCPCS: 36415; 71045; 72131; 75710; 80048; 80053; 80061; 82962; 83036; 83735; 83880; 84100; 84443; 84484; 85025; 85610; 86850; 86900; 86901; 87081; 92941; 92973; 92978; 93005; 93306; 93458; 96374; 99152; 99291; C1887; G0378; J1815; J2250; Q9967